=== PATIENT | male | born 1960 | race Caucasian/White ===

== ENCOUNTER → 2019-01-11 | Outpatient (CLI) | payer BC ==
--- NOTE | 2019-01-12 09:18 | PCVCIMAG ---
APPROVED REPORT Study performed: 01/11/2019 15:29:50 Exam: Stress Echocardiogram Indication: Hyperlipidemia, Chest pain Patient Location: Echo lab Stress Nurse: Nancy Jorge RN Status: routine Ht: 6 ft 0 in HR: 151 bpm BP: 124/80 mmHg Rhythm: NSR Procedure The patient underwent an Exercise Stress Test using the Lucho Protocol. Blood pressure, heart rate, and EKG were monitored. An Echocardiogram was performed by electronic prepress technician in four stages in quad fashion. At peak stress, four selected images were obtained and placed side by side with resting images for comparison. Stress Test Details Stress Test: Exercise stress testing was performed using a Lucho protocol. HR Resting HR: 69 bpmMax Heart Rate (APMHR): 164 bpm Max HR Achieved: 151 bpmTarget HR (85% APMHR): 139 bpm % of APMHR: 92 Recovery HR: 92 bpm HR response to stress: Normal HR response to stress BP Resting BP: 124/80 mmHg Max BP: 194/84 mmHg Recovery BP: 136/84 mmHg BP response to stress: Normal blood pressure response to stress. ECG Resting ECG: Sinus Rhythm Stress ECG: Sinus Rhythm ST Change: Normal Maximum ST Deviation: 0 mm Arrhythmia: None Recovery ECG: Sinus Rhythm Recovery ST Change: Normal Recovery ST Deviation: 0 mm Recovery Arrhythmia: None Clinical Reason for Termination: Maximal effort Exercise duration: 11 min sec Highest Stage Achieved: Stage 4: 4.2 mph at 16% grade. Exercise capacity: 13.70 METs Overall Exercise Capacity for Age: Normal Angina Score: None Stress ECG Conclusion ECG: Non-ischemic Clinical: Non-ischemic Erickson Treadmill Score is 11.0 which is Low risk. Pre-Stress Echo The resting Echocardiogram showed normal left ventricular contractility with an estimated Ejection Fraction of about 55-60%. Normal wall motion in all segments on baseline images. Post-Stress Echo The stress Echocardiogram showed normal left ventricular contractility with an estimated Ejection Fraction of about 60-65%. Normal augmentation of wall motion in all segments on post stress images. Clinical No clinical or ECG evidence for ischemia. Conclusion Clinical Response: Non-ischemic Exercise Capacity: Average Stress ECG Response: Non-ischemic Stress Echo Images: Non-ischemic The left ventricle is normal in size and wall thickness in both the rest and stress images. Trace tricuspid regurgitation. No other doppler abnormalites or stenosis. Normal stress echocardiogram with maximal exercise stress. Other Information Study Quality: Technically Difficult <Conclusion> The left ventricle is normal in size and wall thickness in both the rest and stress images. Trace tricuspid regurgitation. No other doppler abnormalites or stenosis. Normal stress echocardiogram with maximal exercise stress.
== END | disposition home or self-care (01) ==
LOC: PCVCIMAG 15:22
PROVIDERS: ATTEND Internal Medicine
DX: R07.89 Other chest pain (principal); G47.33 Obstructive sleep apnea (adult) (pediatric)
CPT/HCPCS: 93325; 93351